=== PATIENT | male | born 1970 | race Two or more races ===

== ENCOUNTER 2019-03-08 21:46 | Emergency (ER) | payer SELFPAY ==
[~2019-03-08] VITALS: Ht 177.8 cm; Wt 80.0 kg
[2019-03-09 01:30] VITALS: BP 113/65
== END 2019-03-09 02:15 | disposition home or self-care (01) ==
LOC: ER 21:46
DX: S09.90XA Unspecified injury of head, initial encounter (principal); M54.2 Cervicalgia; W18.39XA Other fall on same level, initial encounter; Y93.89 Activity, other specified; Y92.89 Other specified places as the place of occurrence of the external cause; Y99.8 Other external cause status
CPT/HCPCS: 99284